=== PATIENT | male | born 1995 | race Two or more races ===

== ENCOUNTER 2020-05-05 16:30 | Emergency (ER) | payer OTHER ==
[~2020-05-05] VITALS: Ht 170.2 cm; Wt 83.9 kg
[2020-05-05 18:24] VITALS: BP 124/76
== END 2020-05-05 18:35 | disposition home or self-care (01) ==
LOC: ER 16:30
DX: S62.346A Nondisplaced fracture of base of fifth metacarpal bone, right hand, initial encounter for closed fracture (principal); W22.8XXA Striking against or struck by other objects, initial encounter; Y93.89 Activity, other specified; Y92.89 Other specified places as the place of occurrence of the external cause; Y99.8 Other external cause status
CPT/HCPCS: 29125; 73130

== ENCOUNTER 2021-06-22 17:36 | Emergency (ER) | payer MEDICAID, OTHER ==
[~2021-06-22] VITALS: Ht 170.2 cm; Wt 88.5 kg
[2021-06-22 21:30] VITALS: BP 140/92
== END 2021-06-22 21:55 | disposition home or self-care (01) ==
LOC: ER 17:36
DX: S33.5XXA Sprain of ligaments of lumbar spine, initial encounter (principal); S53.492A Other sprain of left elbow, initial encounter; S53.491A Other sprain of right elbow, initial encounter; S73.192A Other sprain of left hip, initial encounter; M62.830 Muscle spasm of back; E66.9 Obesity, unspecified; Z68.30 Body mass index [BMI] 30.0-30.9, adult; V49.49XA Driver injured in collision with other motor vehicles in traffic accident, initial encounter; Y93.89 Activity, other specified; Y92.488 Other paved roadways as the place of occurrence of the external cause; Y99.8 Other external cause status
CPT/HCPCS: 72131; 73070; 73502

== ENCOUNTER 2022-06-20 22:00 | Emergency (ER) | payer MEDICAID ==
[~2022-06-20] VITALS: Ht 170.2 cm; Wt 90.9 kg
[2022-06-20 22:05] VITALS: BP 152/84
[2022-06-20 22:40] LABS: Basophils # (auto) 0.1 10 ^3/uL (0-0.2); Basophils % (auto) 0.6 % (0.0-2.0); Eosinophils # (auto) 0.1 10 ^3/uL (0-0.8); Eosinophils % (auto) 1.6 % (0.0-7.0); Hematocrit 42.9 % (41.0-53.0); Hemoglobin 14.3 g/dL (13.5-17.5); Lymphocytes # (auto) 2.8 10 ^3/uL (0.4-5.4); Lymphocytes % (auto) 31.6 % (10.0-50.0); Mean Corpuscular Hemoglobin 28.5 pg (28.0-32.0); Mean Corpuscular Hgb Conc. 33.3 g/dL (32.0-36.0); Mean Corpuscular Volume 85.6 fL (80.0-100.0); Monocytes # (auto) 0.6 10 ^3/uL (0-1.3); Monocytes % (auto) 6.8 % (0.0-12.0); Neutrophils # (auto) 5.2 10 ^3/uL (1.6-8.6); Neutrophils % (auto) 59.4 % (37.0-80.0); Red Blood Cells 5.01 10^6/uL (4.5-5.90); Red Cell Distribution Width 12.9 % (11.8-14.3); White Blood Cell 8.7 10^3/uL (4.4-10.8)
[2022-06-20 23:04] LABS: Albumin 4.4 g/dL (3.4-5.0); Calcium 9.3 mg/dL (8.5-10.1); Potassium 3.7 mmol/L (3.5-5.1)
[2022-06-20 23:07] LABS: BUN/Creatinine Ratio 16.2; Bilirubin, Total 0.8 mg/dL (0.2-1.0); Total Protein 7.4 g/dL (6.4-8.2)
== END 2022-06-21 00:33 | disposition home or self-care (01) ==
LOC: ER 22:00
DX: R07.89 Other chest pain (principal)
CPT/HCPCS: 36415; 71045; 80053; 83880; 84484; 85025; 85379; 93005

== ENCOUNTER 2022-09-03 19:53 | Emergency (ER) | payer MEDICAID | END 2022-09-03 20:27 | disposition left against medical advice (07) | LOC: ER 19:53 | DX: R50.9 Fever, unspecified (principal); Z53.21 Procedure and treatment not carried out due to patient leaving prior to being seen by health care provider ==